=== PATIENT | female | born 1980 | race Caucasian/White ===

== ENCOUNTER 2017-02-27 01:02 | Emergency (ER) | payer MEDICAID, OTHER ==
[~2017-02-27] VITALS: Ht 154.9 cm; Wt 61.5 kg
[~2017-02-27 01:02] MED LIST: FIORICET PO; GLIM4TAB PO; MTF1000T PO; ONDA4TAB14 PO
[2017-02-27 01:14] VITALS: Ht 154.9 cm; Wt 61.5 kg
[2017-02-27] MEDS ORDERED: ONDANSETRON 4 MG INJ IV STA (02:30)
[2017-02-27] MEDS ORDERED: SOD CHLORIDE 0.9% 1,000 ML IV STA (02:30)
[2017-02-27] MEDS ORDERED: morphine 4 MG/ML VIAL IV STA (02:30)
--- NOTE | 2017-02-27 03:07 | ERD ---
ER Documentation Chief Complaint Date/Time DATE: 02/27/17 TIME: 03:05 Chief Complaint llq abd pain started yesterday on and off with nausea HPI 36-year-old female presents here in emergency department for complaints of left lower quadrant abdominal pain started yesterday. Patient describes the pain sharp pain 6/10 scale, accompanied with nausea and constipation, last bowel movement was 2 days ago. Denies any blood in the stool or black stool. Patient denies any vomiting. Patient denies any fever or chills. Patient did not take any medications to symptoms. ROS All systems reviewed and are negative except as per history of present illness. Medications Home Meds Active Scripts Ondansetron (Ondansetron Odt) 4 Mg Tab.rapdis, 4 MG PO Q8 Y for NAUSEA AND/OR VOMITING, #30 TAB Prov:ZA GREEN NP 02/27/17 Tramadol HCl (Tramadol HCl) 50 Mg Tablet, 50 MG PO Q6 Y for PAIN, #20 TAB Prov:ZA GREEN NP 02/27/17 Polyethylene Glycol* (Miralax*) 17 Gm Powd.pack, 17 GM PO DAILY, #7 Prov:ZA GREEN NP 02/27/17 Docusate Sodium* (Colace*) 100 Mg Capsule, 100 MG PO TID, #30 CAP Prov:ZA GREEN NP 02/27/17 Ondansetron (Ondansetron Odt) 4 Mg Tab.rapdis, 4 MG PO Q6H Y for NAUSEA AND/OR VOMITING, #10 TAB Prov:BOBBI INFANTE PA-C 10/02/16 Acetamin/Butalbital/Caffeine* (Fioricet*) [id number] Tab, 1 TAB PO Q6H Y for PAIN, #20 TAB Prov:BOBBI INFANTE PA-C 10/02/16 Reported Medications Glimepiride* (Glimepiride*) 4 Mg Tablet, 4 MG PO BID, TAB 01/10/15 Metformin* (Glucophage*) 1,000 Mg Tablet, 1000 MG PO BID, TAB 01/10/15 Allergies Allergies: Coded Allergies: No Known Allergies (Verified Allergy, Mild, 01/10/15) PMhx/Soc History of Surgery: Yes (c/s) Anesthesia Reaction: No Hx Neurological Disorder: No Hx Respiratory Disorders: No Hx Cardiac Disorders: No Hx Psychiatric Problems: No Hx Miscellaneous Medical Probl: Yes (DMtype 2) Hx Alcohol Use: No Hx Substance Use: No Hx Tobacco Use: No Smoking Status: Never smoker FmHx Family History: No coronary disease, No diabetes, No other Physical Exam Vitals Vital Signs Date Time Temp Pulse Resp B/P Pulse Ox O2 Delivery O2 Flow Rate FiO2 02/27/17 03:46 97.2 60 17 108/59 99 Room Air 02/27/17 01:14 97.5 83 18 108/72 99 Physical Exam GENERAL: The patient is well developed and appropriate for usual state of health, in no apparent distress. CHEST: Clear to auscultation bilaterally. There are no rales, wheezes or rhonchi. HEART: Regular rate and rhythm. No murmurs, clicks, rubs or gallops. No S3 or S4. ABDOMEN: Soft, tenderness on palpation in left lower quadrant. Good bowel sounds. No rebound or guarding. No gross peritonitis. No gross organomegaly or masses. No Leahy sign or McBurney point tenderness. BACK: No midline or flank tenderness. EXTREMITIES: Equal pulses bilaterally. There is no peripheral clubbing, cyanosis or edema. No focal swelling or erythema. Full range of motion. Grossly neurovascularly intact. NEURO: Alert and oriented. Cranial nerves 2-12 intact. Motor strength in all 4 extremities with 5/5 strength. Sensation grossly intact. Normal speech and gait. SKIN: There is no apparent rash or petechia. The skin is warm and dry. HEMATOLOGIC AND LYMPHATIC: There is no evidence of excessive bruising or lymphedema. No gross cervical, axillary, or inguinal lymphadenopathy. Result Diagram: 02/27/17 0244 02/27/17 0244 Results 24 hrs Laboratory Tests Test 02/27/17 02:44 White Blood Count 5.710^3/ul Red Blood Count 3.9410^6/ul Hemoglobin 11.9g/dl Hematocrit 35.6% Mean Corpuscular Volume 90.4fl Mean Corpuscular Hemoglobin 30.2pg Mean Corpuscular Hemoglobin Concent 33.4g/dl Red Cell Distribution Width 13.1% Platelet Count 04937^3/UL Mean Platelet Volume 9.3fl Neutrophils % 36.7% Lymphocytes % 53.8% Monocytes % 6.0% Eosinophils % 2.6% Basophils % 0.7% Nucleated Red Blood Cells % 0.0/100WBC Neutrophils # 2.110^3/ul Lymphocytes # 3.110^3/ul Monocytes # 0.310^3/ul Eosinophils # 0.210^3/ul Basophils # 0.010^3/ul Nucleated Red Blood Cells # 0.010^3/ul Urine Color LT. YELLOW Urine Clarity CLEAR Urine pH 5.5 Urine Specific [place] <=1.005 Urine Ketones NEGATIVE Urine Nitrite NEGATIVE Urine Bilirubin NEGATIVE Urine Urobilinogen 0.2 E.U./dL Urine Leukocyte Esterase NEGATIVE Urine Microscopic RBC Pending Urine Microscopic WBC Pending Urine Hemoglobin 2+ Urine Glucose >=1000% Urine Total Protein NEGATIVE Sodium Level 138mmol/L Potassium Level 3.9mmol/L Chloride Level 101mmol/L Carbon Dioxide Level 22mmol/L Anion Gap 19 Blood Urea Nitrogen 10mg/dl Creatinine 0.50mg/dl Glucose Level 257mg/dl Calcium Level 9.1mg/dl Total Bilirubin 0.2mg/dl Direct Bilirubin 0.00mg/dl Indirect Bilirubin 0.2mg/dl Aspartate Amino Transf (AST/SGOT) 14IU/L Alanine Aminotransferase (ALT/SGPT) 15IU/L Alkaline Phosphatase 82IU/L Total Protein 7.6g/dl Albumin 4.2g/dl Globulin 3.40g/dl Albumin/Globulin Ratio 1.23 Lipase 99U/L Current Medications Medications (Trade) Dose Ordered Sig/Negrito Route PRN Reason Start Time Stop Time Status Last Admin Dose Admin Sodium Chloride (NS) 1,000 ml @ 1,000 mls/hr Q1H STAT IV 02/27/17 02:30 02/27/17 03:29 DC 02/27/17 02:39 Morphine Sulfate (morphine) 4 mg ONCE STAT IV 02/27/17 02:30 02/27/17 02:31 DC 02/27/17 02:39 Ondansetron HCl (Zofran Inj) 4 mg ONCE STAT IV 02/27/17 02:30 02/27/17 02:31 DC 02/27/17 02:39 Normal saline IV bolus was given here in emergency department for rehydration, patient tolerated IV fluids.Patient was given medication for pain here in emergency department, after treatment, patient verbalized feeling much better. Patient's pain is improved. Patient was given Zofran here in the emergency department. After treatment, patient was able to tolerate po fluids here in the emergency department without any vomiting. There is no signs and symptoms of dehydration. PROCEDURE: CT abdomen and pelvis without intravenous contrast. CLINICAL INDICATION: Pain. TECHNIQUE: CT of the abdomen/pelvis was performed utilizing axial images with reconstructions in sagittal and coronal planes. The administered radiation dose is CTDI 7.8 mGy, DLP 423 mGy-cm. COMPARISON: No pertinent prior examinations were submitted for comparison. FINDINGS: Visualized Chest: The visualized lung bases are clear. Abdomen: The liver, spleen, pancreas, gallbladder,and adrenal glands are unremarkable. The kidneys are without hydronephrosis. A punctate nonobstructive calculus is noted within the interpolar left kidney. There is no evidence of bowel obstruction. The appendix is normal. No intra- abdominal free air is seen. There is no evidence of intra-abdominal adenopathy or free fluid. Pelvis: There is no evidence of pelvic adenopathy. The uterus and ovaries are without enlargement. The urinary bladder is unremarkable. There is no pelvic free fluid. Osseous structures: Unremarkable. IMPRESSION: No acute findings. Punctate nonobstructive left intrarenal calculus. RPTAT: HIKT .Chinedu Daniels MD, MD Date Time Electronically viewed and signed by .Chinedu Daniels MD, MD on 02/27/2017 04:23 .T/ CC: ZA GREEN [employer]NEY[employer] W[employer] Procedures/MDM Medical Decision Making: Patient's symptoms of left lower quadrant abdominal pain nonspecific at this time, can be from constipation, no bowel obstruction noted, no diverticulitis noted, no symptoms of any other perforated diverticulitis or abscesses. No suspicion for appendicitis. Patient's pain is controlled. There is low suspicion for abdominal emergencies at this time. Patients abdominal exam is normal at this time. Patients radiology exam does not show any abdominal emergencies at this time. There is low suspicion for appendicitis, cholecystitis, abdominal aortic aneurysms or peritonitis at this time. There is low suspicion for sepsis. Patient appears well and is hemodynamically stable. Disposition: Home. Condition: Stable Prescription Tramadol, Zofran, MiraLAX, Colace Instructions: Patient is advised to take medications as prescribed. Patient is advised to rest, increase fluid intake and do brat diet for next 1-2 days and progress as tolerated. Patient is advised that if symptoms are worse, severe abdominal pain, uncontrolled vomiting, high fever, severe flank pain, worst signs and symptoms, to return to the emergency department immediately. Otherwise, patient can follow up with primary care doctor in 5-7 days. Departure Diagnosis: Primary Impression: Abdominal pain Abdominal location: left lower quadrant Qualified Code: R10.32 - Left lower quadrant pain Additional Impression: Constipation Constipation type: unspecified constipation type Qualified Code: K59.00 - Constipation, unspecified constipation type Condition: Stable Patient Instructions: Abdominal Pain, Constipation (Adult) Comments Patient is advised to take medications as prescribed. Patient is advised to rest, increase fluid intake and do brat diet for next 1-2 days and progress as tolerated. Patient is advised that if symptoms are worse, severe abdominal pain , uncontrolled vomiting, high fever, severe flank pain, worst signs and symptoms , to return to the emergency department immediately. Otherwise, patient can follow up with primary care doctor in 5-7 days. ZA GREEN NP Feb 27, 2017 03:07
[2017-02-27 03:32] LABS: ADD SCAN DIFF NO
[2017-02-27 03:39] LABS: ADD UMIC YES; URINE BILIRUBIN (Dip) NEGATIVE (NEGATIVE); URINE BLOOD (Dip) 2+ (NEGATIVE); URINE COLOR LT. YELLOW (YELLOW); URINE GLUCOSE (Dip) >=1000 % (NEGATIVE); URINE KETONES (Dip) NEGATIVE (NEGATIVE); URINE LEUKOCYTE ESTERASE (Dip) NEGATIVE (NEGATIVE); URINE NITRITE (Dip) NEGATIVE (NEGATIVE); URINE TOTAL PROTEIN (Dip) NEGATIVE (NEGATIVE); URINE UROBILINOGEN (Dip) 0.2 E.U./dL (0.1-1.0)
[2017-02-27 03:56] LABS: BASOPHILS % 0.7 % (0.0-2.0); EOSINOPHILS # 0.2 10^3/ul (0.0-0.5); EOSINOPHILS % 2.6 % (0.0-7.0); HEMATOCRIT 35.6 % (37.0-47.0); HEMOGLOBIN 11.9 g/dl (12.0-16.0); LYMPHOCYTES # 3.1 10^3/ul (0.8-2.9); LYMPHOCYTES % 53.8 % (15.0-51.0); MEAN CORPUSCULAR HEMOGLOBIN 30.2 pg (29.0-33.0); MEAN CORPUSCULAR HGB CONC 33.4 g/dl (32.0-37.0); MEAN CORPUSCULAR VOLUME 90.4 fl (82.0-101.0); MEAN PLATELET VOLUME 9.3 fl (7.4-10.4); MONOCYTE # 0.3 10^3/ul (0.3-0.9); NEUTROPHIL # 2.1 10^3/ul (1.6-7.5); NEUTROPHILS % 36.7 % (39.0-77.0); PLATELET COUNT 385 10^3/UL (140-415); RED BLOOD COUNT 3.94 10^6/ul (4.20-5.40); RED CELL DISTRIBUTION WIDTH 13.1 % (11.5-14.5); WHITE BLOOD COUNT 5.7 10^3/ul (4.8-10.8)
[2017-02-27 04:01] LABS: ALBUMIN 4.2 g/dl (3.3-4.9)
[2017-02-27 04:02] LABS: POTASSIUM 3.9 mmol/L (3.5-5.1)
[2017-02-27 04:04] LABS: ALBUMIN/GLOBULIN RATIO 1.23; BILIRUBIN,INDIRECT 0.2 mg/dl (0-1.1); BILIRUBIN,TOTAL 0.2 mg/dl (0.2-1.3); CREATININE 0.5 mg/dl (0.44-1.00); TOTAL PROTEIN 7.6 g/dl (6.1-8.1)
[2017-02-27 04:05] LABS: CALCIUM 9.1 mg/dl (8.4-10.2)
--- NOTE | 2017-02-27 04:23 | RADRPT ---
PROCEDURE: CT abdomen and pelvis without intravenous contrast. CLINICAL INDICATION: Pain. TECHNIQUE: CT of the abdomen/pelvis was performed utilizing axial images with reconstructions in s agittal and coronal planes. The administered radiation dose is CTDI 7.8 mGy, DLP 423 mGy-cm. COMPARISON: No pertinent prior examinations were submitted for comparison. FINDINGS: Visualized Chest: The visualized lung bases are clear. Abdomen: The liver, spleen, pancreas, gallbladder,and adrenal glands are unremarkable. The kidneys are without hydronephrosis. A punctate nonobstructive calculus is noted within the inte rpolar left kidney. There is no evidence of bowel obstruction. The appendix is normal. No intra-abdominal free air is seen. There is no evidence of intra-abdominal adenopathy or free fluid. Pelvis: There is no evidence of pelvic adenopathy. The uterus and ovaries are without enlargement. The uri nary bladder is unremarkable. There is no pelvic free fluid. Osseous structures: Unremarkable. IMPRESSION: No acute findings. Punctate nonobstructive left intrarenal calculus. RPTAT: HIKT .Chinedu Daniels MD, MD Date Time Electronically viewed and signed by .Chinedu Daniels MD, MD on 02/27/2017 04:23 .T/
[2017-02-27] MEDS ORDERED: DOCU-144 PO (05:29)
[2017-02-27] MEDS ORDERED: POLY17PO6 PO (05:29)
[2017-02-27] MEDS ORDERED: TRAM50TA2 PO (05:30)
[2017-02-27] MEDS ORDERED: ONDA4TAB14 PO (05:30)
[2017-02-27 05:39] VITALS: BP 95/53; PULSE 67; RESP 16; TEMP 98
[2017-02-27 05:58] LABS: SQUAMOUS EPITHELIAL CELL,UR FEW
[2017-02-27 05:59] LABS: BACTERIA,URINE FEW
== END 2017-02-27 05:40 | disposition home or self-care (01) ==
LOC: FTE 01:02
DX: R10.32 Left lower quadrant pain (principal); K59.00 Constipation, unspecified; R11.0 Nausea; E11.9 Type 2 diabetes mellitus without complications; Z79.84 Long term (current) use of oral hypoglycemic drugs
CPT/HCPCS: 36415; 74176; 80053; 81001; 83690; 85025; 96374; 96375; J2270; J2405; J7030; Z7502; 81003

== ENCOUNTER 2017-05-04 21:47 | Emergency (ER) | payer OTHER ==
[~2017-05-04] VITALS: Ht 157.5 cm; Wt 59.5 kg
[~2017-05-04 21:47] MED LIST changes: +DOCU-144 PO; +POLY17PO6 PO; +TRAM50TA2 PO
[2017-05-04 22:14] VITALS: Ht 157.5 cm; Wt 59.5 kg
--- NOTE | 2017-05-04 22:55 | ERD ---
ER Documentation Chief Complaint Date/Time DATE: 05/04/17 TIME: 22:52 Chief Complaint headache; throat pain; bone pain HPI 36-year-old female presents here in emergency department for complaints of headache, bodyaches, sore throat for last 3 days. Patient's complaining of sore throat, burning pain, 6/10 scale, is worse upon swallowing. Patient's complaining of fever. Patient denies any sick contacts. Patient did not take any medication to help with symptoms. ROS All systems reviewed and are negative except as per history of present illness. Medications Home Meds Active Scripts Ibuprofen* (Motrin*) 600 Mg Tab, 600 MG PO Q6H Y for PAIN AND OR ELEVATED TEMP, #30 TAB Prov:ZA GREEN NP 05/04/17 Amoxicillin* (Amoxicillin*) 500 Mg Cap, 500 MG PO TID for 10 Days, CAP Prov:ZA GREEN NP 05/04/17 Ondansetron (Ondansetron Odt) 4 Mg Tab.rapdis, 4 MG PO Q8 Y for NAUSEA AND/OR VOMITING, #30 TAB Prov:ZA GREEN NP 02/27/17 Tramadol HCl (Tramadol HCl) 50 Mg Tablet, 50 MG PO Q6 Y for PAIN, #20 TAB Prov:ZA GREEN NP 02/27/17 Polyethylene Glycol* (Miralax*) 17 Gm Powd.pack, 17 GM PO DAILY, #7 Prov:ZA GREEN NP 02/27/17 Docusate Sodium* (Colace*) 100 Mg Capsule, 100 MG PO TID, #30 CAP Prov:ZA GREEN NP 02/27/17 Ondansetron (Ondansetron Odt) 4 Mg Tab.rapdis, 4 MG PO Q6H Y for NAUSEA AND/OR VOMITING, #10 TAB Prov:BOBBI INFANTE PA-C 10/02/16 Acetamin/Butalbital/Caffeine* (Fioricet*) [id number] Tab, 1 TAB PO Q6H Y for PAIN, #20 TAB Prov:BOBBI INFANTE PA-C 10/02/16 Reported Medications Glimepiride* (Glimepiride*) 4 Mg Tablet, 4 MG PO BID, TAB 01/10/15 Metformin* (Glucophage*) 1,000 Mg Tablet, 1000 MG PO BID, TAB 01/10/15 Allergies Allergies: Coded Allergies: No Known Allergies (Verified Allergy, Mild, 01/10/15) PMhx/Soc History of Surgery: Yes (c/s) Anesthesia Reaction: No Hx Neurological Disorder: No Hx Respiratory Disorders: No Hx Cardiac Disorders: No Hx Psychiatric Problems: No Hx Miscellaneous Medical Probl: Yes (DMtype 2) Hx Alcohol Use: No Hx Substance Use: No Hx Tobacco Use: No Smoking Status: Never smoker FmHx Family History: No coronary disease, No diabetes, No other Physical Exam Vitals Vital Signs Date Time Temp Pulse Resp B/P Pulse Ox O2 Delivery O2 Flow Rate FiO2 05/04/17 23:43 98.1 87 05/04/17 22:14 99.2 118 20 117/77 98 Physical Exam GENERAL: The patient is well developed and appropriate for usual state of health, in no apparent distress. HEENT: Atraumatic. Ears: Normal tympanic membrane, no erythema or bulging. No ear canal swelling. No ear discharge. Nose: normal nasal turbinates, no erythema or swelling. Normal nasal discharge. Throat: oropharynx erythematous with +1 tonsillar swelling and tonsillar exudates noted. No lymphadenopathy. CHEST: Clear to auscultation bilaterally. There are no rales, wheezes or rhonchi. HEART: Regular rate and rhythm. No murmurs, clicks, rubs or gallops. No S3 or S4. ABDOMEN: Soft, nontender and nondistended. Good bowel sounds. No rebound or guarding. No gross peritonitis. No gross organomegaly or masses. No Leahy sign or McBurney point tenderness. BACK: No midline or flank tenderness. EXTREMITIES: Equal pulses bilaterally. There is no peripheral clubbing, cyanosis or edema. No focal swelling or erythema. Full range of motion. Grossly neurovascularly intact. NEURO: Alert and oriented. Cranial nerves 2-12 intact. Motor strength in all 4 extremities with 5/5 strength. Sensation grossly intact. Normal speech and gait. SKIN: There is no apparent rash or petechia. The skin is warm and dry. HEMATOLOGIC AND LYMPHATIC: There is no evidence of excessive bruising or lymphedema. No gross cervical, axillary, or inguinal lymphadenopathy. Results 24 hrs Current Medications Medications (Trade) Dose Ordered Sig/Negrito Route PRN Reason Start Time Stop Time Status Last Admin Dose Admin Acetaminophen (Tylenol Tab) 650 mg ONCE ONCE PO 05/04/17 23:00 05/04/17 23:01 DC 05/04/17 23:24 Ibuprofen (Motrin) 600 mg ONCE ONCE PO 05/04/17 23:00 05/04/17 23:01 DC 05/04/17 23:24 Patient was given medicines for fever control here in the emergency department. After treatment, patient temperature improved and lower. Patient appears well and is hemodynamically stable. Procedures/MDM Medical decision making: Patient symptoms is likely consistent with acute bacterial pharyngitis, most likely strep throat. Low suspicion for peritonsillar abscess, mononucleosis, no symptoms of epiglottitis, laryngitis. No oral airway obstruction noted. No symptoms of sepsis at this time. Patient appears well and is hemodynamically stable. Patient was given for amoxicillin, ibuprofen,, is advised to follow-up with primary care doctor in 2-3 days for reevaluation of symptoms. Patient is advised to do salt water gargles. Patient is advised to return to emergency department for worsening symptoms. Disposition: Home. Stable. Departure Diagnosis: Primary Impression: Acute bacterial pharyngitis Condition: Stable Patient Instructions: Pharyngitis, Strep (Presumed) ZA GREEN NP May 04, 2017 22:55
[2017-05-04] MEDS ORDERED: IBUP-1542 PO (22:56)
[2017-05-04] MEDS ORDERED: AMO500 PO (22:56)
[2017-05-04] MEDS ORDERED: ACETAMINOPHEN 325 MG TAB PO ONE (23:00)
[2017-05-04] MEDS ORDERED: IBUPROFEN 600 MG TAB PO ONE (23:00)
[2017-05-04 23:43] VITALS: PULSE 87; TEMP 98.1
== END 2017-05-04 23:44 | disposition home or self-care (01) ==
LOC: FTE 21:47
DX: J02.8 Acute pharyngitis due to other specified organisms (principal); B96.89 Other specified bacterial agents as the cause of diseases classified elsewhere; E11.9 Type 2 diabetes mellitus without complications; Z79.84 Long term (current) use of oral hypoglycemic drugs
CPT/HCPCS: Z7502; Z7610

== ENCOUNTER 2017-05-10 11:24 | Emergency (ER) | payer OTHER ==
[~2017-05-10] VITALS: Ht 149.9 cm; Wt 52.5 kg
[~2017-05-10 11:24] MED LIST changes: +AMO500 PO; +IBUP-1542 PO
[2017-05-10 11:26] VITALS: Ht 149.9 cm; Wt 52.5 kg
[2017-05-10] MEDS ORDERED: KETOROLAC 30 MG INJ IM STA (11:56)
--- NOTE | 2017-05-10 12:14 | ERD ---
ER Documentation Chief Complaint Date/Time DATE: 05/10/17 TIME: 12:07 Chief Complaint SORTHROAT/ MENESES [id number], ON ABX, SEEN BY PCP BLOOD TEST DONE YESTERDAY HPI 36-year-old female complaining of sore throat and headache 1 week. Patient was seen here about 1 week ago, was diagnosed as possible strep pharyngitis and given amoxicillin. Patient stated that he had not help with her sore throat. She was seen by PCP yesterday, and had blood test done. She has not received the results yet. Patient reports intermittent fever at home with T-max 100.3. Her headache concentrated in the occipital region. She reports body aches and tired most. She took Excedrin migraine and ibuprofen at home for headache without relief. LMP 04/26/2017. Denies shortness of breath. Denies cough. Denies abdominal pain, vomiting, or diarrhea. ROS All systems reviewed and are negative except as per history of present illness. Medications Home Meds Active Scripts Ibuprofen* (Motrin*) 600 Mg Tab, 600 MG PO Q6H Y for PAIN AND OR ELEVATED TEMP, #30 TAB Prov:ZA GREEN NP 05/04/17 Amoxicillin* (Amoxicillin*) 500 Mg Cap, 500 MG PO TID for 10 Days, CAP Prov:ZA GREEN NP 05/04/17 Ondansetron (Ondansetron Odt) 4 Mg Tab.rapdis, 4 MG PO Q8 Y for NAUSEA AND/OR VOMITING, #30 TAB Prov:AZ GREEN NP 02/27/17 Tramadol HCl (Tramadol HCl) 50 Mg Tablet, 50 MG PO Q6 Y for PAIN, #20 TAB Prov:ZA GREEN NP 02/27/17 Polyethylene Glycol* (Miralax*) 17 Gm Powd.pack, 17 GM PO DAILY, #7 Prov:ZA GREEN NP 02/27/17 Docusate Sodium* (Colace*) 100 Mg Capsule, 100 MG PO TID, #30 CAP Prov:ZA GREEN NP 02/27/17 Ondansetron (Ondansetron Odt) 4 Mg Tab.rapdis, 4 MG PO Q6H Y for NAUSEA AND/OR VOMITING, #10 TAB Prov:BOBBI INFANTE PA-C 10/02/16 Acetamin/Butalbital/Caffeine* (Fioricet*) [id number] Tab, 1 TAB PO Q6H Y for PAIN, #20 TAB Prov:BOBBI INFANTE PA-C 10/02/16 Reported Medications Glimepiride* (Glimepiride*) 4 Mg Tablet, 4 MG PO BID, TAB 01/10/15 Metformin* (Glucophage*) 1,000 Mg Tablet, 1000 MG PO BID, TAB 01/10/15 Allergies Allergies: Coded Allergies: No Known Allergies (Verified Allergy, Mild, 05/10/17) PMhx/Soc History of Surgery: Yes (c section ) Anesthesia Reaction: No Hx Neurological Disorder: No Hx Respiratory Disorders: No Hx Cardiac Disorders: No Hx Psychiatric Problems: No Hx Miscellaneous Medical Probl: Yes (DMtype 2) Hx Alcohol Use: No Hx Substance Use: No Hx Tobacco Use: No Smoking Status: Never smoker Physical Exam Vitals Vital Signs Date Time Temp Pulse Resp B/P Pulse Ox O2 Delivery O2 Flow Rate FiO2 05/10/17 11:26 97.7 123 20 120/71 99 Physical Exam General: Well-developed, well-nourished, conscious and coherent, in no distress Skin: Warm and dry without rash, good texture and turgor Head: Normocephalic without evidence of trauma Eyes: Sclera and conjunctivae normal; pupils equal, round, and reactive to light; extraocular movements are intact Ears: Canals are patent. Tympanic membranes are clear Nose/Face: Without rhinorrhea Mouth/throat: Mucous membranes are moist. Posterior pharynx clear without erythema or exudates Neck: Supple without meningismus or adenopathy. Carotids are equal. Trachea midline. No bruits or JVD. Bilateral sternocleidomastoid tenderness and tightness. Chest: Normal AP diameter. Good expansion without retractions. Nontender. Lungs are clear to auscultate bilaterally with good tidal volume Heart: Regular rate and rhythm. Heart rate 96 bpm. No murmur, rub, or gallops heard. Abdomen: Soft and nontender without masses, guarding, or rebound. Bowel sounds are active. No hepatosplenomegaly Back: Without spinal or CVA tenderness Extremities: Full range of motion. Good strength bilaterally. No clubbing, cyanosis, or edema. Peripheral pulses are intact. Sensation intact Neuro: Alert and oriented 4, GCS 15. Cranial nerves grossly intact. Motor and sensory exams nonfocal. Moves all extremities. Speech clear. Gait normal Results 24 hrs Current Medications Medications (Trade) Dose Ordered Sig/Negrito Route PRN Reason Start Time Stop Time Status Last Admin Dose Admin Ketorolac Tromethamine (Toradol) 30 mg ONCE STAT IM 05/10/17 11:56 05/10/17 11:57 DC 05/10/17 12:06 Procedures/MDM Well-appearing 36-year-old female presented ED with subjective fever, sore throat, and headache 1 week. Toradol given to the patient in the ED for headache, patient reports improvement after Toradol Patient had been on amoxicillin for a week, her oropharynx unremarkable eye exam , I have low suspicion for strep pharyngitis. Patient does not have any respiratory distress, lungs are clear. I doubt pneumonia or bronchitis. I suspect her sore throat is from a viral cause, common cold versus mononucleosis. Her headaches likely tension type. Low suspicion for intracranial hemorrhage, mass, or stroke Patient appears well, stable for discharge and outpatient management. Medical decision making shared with patient and family. Education provided to patient and family. Patient and family expressed understanding of the plan. Medications on discharge: None. Follow-up: Primary care provider in 2-3 days or return to ED if worse. Departure Diagnosis: Primary Impression: Headache Headache type: tension-type Headache chronicity pattern: acute headache Intractability: not intractable Qualified Code: G44.209 - Acute non intractable tension-type headache Additional Impression: Sore throat Condition: Good Patient Instructions: Self-Care for Sore Throats, Self-Care for Headaches Additional Instructions: Llame al doctor MAANA y milo adalgisa VITO PARA DENTRO DE 2-3 MCCOY.Dgale a la secretaria que nosotros le instruimos hacer esta vito.Avise o llame si lara condicin se empeora antes de la vito. Regresa aqui si peor o no mejor. SERA PADILLA NP May 10, 2017 12:14
== END 2017-05-10 12:20 | disposition home or self-care (01) ==
LOC: FTE 11:24
DX: G44.209 Tension-type headache, unspecified, not intractable (principal); E11.9 Type 2 diabetes mellitus without complications; Z79.84 Long term (current) use of oral hypoglycemic drugs
CPT/HCPCS: 96372; J1885; Z7502

== ENCOUNTER 2017-05-12 14:51 | Emergency (ER) | payer OTHER ==
[~2017-05-12] VITALS: Ht 157.5 cm; Wt 57.0 kg
[2017-05-12 14:55] VITALS: Ht 157.5 cm; Wt 57.0 kg
[2017-05-12] MEDS ORDERED: ONDANSETRON 4 MG INJ IV STA (16:01)
[2017-05-12] MEDS ORDERED: SOD CHLORIDE 0.9% 1,000 ML IV STA (16:01)
[2017-05-12] MEDS ORDERED: ACETAMINOPHEN 325 MG TAB PO STA (16:01)
[2017-05-12 16:28] LABS: ADD SCAN DIFF NO
[2017-05-12 16:31] LABS: BASOPHILS % 0.1 % (0.0-2.0); EOSINOPHILS # 0.1 10^3/ul (0.0-0.5); EOSINOPHILS % 0.9 % (0.0-7.0); HEMATOCRIT 32.8 % (37.0-47.0); HEMOGLOBIN 10.8 g/dl (12.0-16.0); LYMPHOCYTES % 24.8 % (15.0-51.0); MEAN CORPUSCULAR HEMOGLOBIN 29.3 pg (29.0-33.0); MEAN CORPUSCULAR HGB CONC 32.9 g/dl (32.0-37.0); MEAN CORPUSCULAR VOLUME 88.9 fl (82.0-101.0); MEAN PLATELET VOLUME 8.2 fl (7.4-10.4); MONOCYTE # 0.5 10^3/ul (0.3-0.9); MONOCYTES % 6.4 % (0.0-11.0); NEUTROPHIL # 5.4 10^3/ul (1.6-7.5); NEUTROPHILS % 67.4 % (39.0-77.0); PLATELET COUNT 567 10^3/UL (140-415); RED BLOOD COUNT 3.69 10^6/ul (4.20-5.40); RED CELL DISTRIBUTION WIDTH 11.7 % (11.5-14.5)
[2017-05-12 16:41] LABS: URINE BLOOD (Dip) POC Negative (NEGATIVE)
--- NOTE | 2017-05-12 16:44 | RADRPT ---
PROCEDURE: CT Brain without contrast. CLINICAL INDICATION: Headache. TECHNIQUE: A CT of the brain without contrast was performed utilizing axial sections from the skul l base through the vertex. The patient was scanned without intravenous contrast enhancement. Sagitta l and coronal reformatted images were obtained using the data from the axial images. Total exam DLP is 630.20 mGy-cm. CTDIvol is 44.19 mGy. One or more of the following dose reduction techniques we re used: Automated exposure control, adjustment of the mA and/or kV according to patient size, use o f iterative reconstruction technique. COMPARISON: 10/02/2016. FINDINGS: There is normal irvin-white matter differentiation. The ventricles and cisterns are normal. There is no intracranial hemorrhage or space-occupying lesion. There is no skull fracture or lytic lesion. IMPRESSION: 1. Normal noncontrast CT scan of the brain. 2. No intracranial hemorrhage. 3. No change from 10/02/2016. RPTAT: QQ .Juan Martinez MD, MD Date Time Electronically viewed and signed by .Juan Martinez MD, on 05/12/2017 16:44 .R/
[2017-05-12] MEDS ORDERED: KETOROLAC 30 MG INJ IV STA (16:50)
[2017-05-12 16:53] LABS: ALBUMIN 4.3 g/dl (3.3-4.9); ALBUMIN/GLOBULIN RATIO 1.26; BILIRUBIN,INDIRECT 0.1 mg/dl (0-1.1); BILIRUBIN,TOTAL 0.1 mg/dl (0.2-1.3); CALCIUM 9.6 mg/dl (8.4-10.2); CREATININE 0.46 mg/dl (0.44-1.00); POTASSIUM 3.9 mmol/L (3.5-5.1); TOTAL PROTEIN 7.7 g/dl (6.1-8.1)
--- NOTE | 2017-05-12 17:42 | ERD ---
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 Patient states that this is her third ER visit. She states that 9 days ago she was diagnosed with strep pharyngitis and was given amoxicillin. She states that she stop the amoxicillin and was given azithromycin from her primary care provider on Tuesday. She states that she has been having continuous headaches and body aches and chills as well as bilateral neck pain. Denies abdominal pain, nausea, vomiting or diarrhea. States that she came to the ER 2 days ago with similar complaints and states that she was given Toradol with no other medication. She states that the pain is the same. She states that the pain came on suddenly 10 days ago. She denies fever. She states that she had some blood work done at her primary care provider but is unsure of what the results are and does not have the results with her. ROS All systems reviewed and are negative except as per history of present illness. Medications Home Meds Active Scripts Ibuprofen* (Motrin*) 600 Mg Tab, 600 MG PO Q6H Y for PAIN AND OR ELEVATED TEMP, #30 TAB Prov:ZA GREEN NP 05/04/17 Amoxicillin* (Amoxicillin*) 500 Mg Cap, 500 MG PO TID for 10 Days, CAP Prov:ZA GREEN NP 05/04/17 Ondansetron (Ondansetron Odt) 4 Mg Tab.rapdis, 4 MG PO Q8 Y for NAUSEA AND/OR VOMITING, #30 TAB Prov:ZA GREEN NP 02/27/17 Tramadol HCl (Tramadol HCl) 50 Mg Tablet, 50 MG PO Q6 Y for PAIN, #20 TAB Prov:ZA GREEN NP 02/27/17 Polyethylene Glycol* (Miralax*) 17 Gm Powd.pack, 17 GM PO DAILY, #7 Prov:ZA GREEN NP 02/27/17 Docusate Sodium* (Colace*) 100 Mg Capsule, 100 MG PO TID, #30 CAP Prov:ZA GREEN BIBI RenaMichael FIELDS 02/27/17 Ondansetron (Ondansetron Odt) 4 Mg Tab.rapdis, 4 MG PO Q6H Y for NAUSEA AND/OR VOMITING, #10 TAB Prov:BOBBI INFANTE PA-C 10/02/16 Acetamin/Butalbital/Caffeine* (Fioricet*) [id number] Tab, 1 TAB PO Q6H Y for PAIN, #20 TAB Prov:BOBBI INFANTE PA-C 10/02/16 Reported Medications Glimepiride* (Glimepiride*) 4 Mg Tablet, 4 MG PO BID, TAB 01/10/15 Metformin* (Glucophage*) 1,000 Mg Tablet, 1000 MG PO BID, TAB 01/10/15 Allergies Allergies: Coded Allergies: No Known Allergies (Verified Allergy, Mild, 05/10/17) PMhx/Soc History of Surgery: Yes (c section ) Anesthesia Reaction: No Hx Neurological Disorder: No Hx Respiratory Disorders: No Hx Cardiac Disorders: No Hx Psychiatric Problems: No Hx Miscellaneous Medical Probl: Yes (DMtype 2) Hx Alcohol Use: No Hx Substance Use: No Hx Tobacco Use: No Smoking Status: Never smoker FmHx Family History: No coronary disease, No diabetes, No other Physical Exam Vitals Vital Signs Date Time Temp Pulse Resp B/P Pulse Ox O2 Delivery O2 Flow Rate FiO2 05/12/17 18:04 106 19 118/73 100 Room Air 05/12/17 14:55 99.0 120 18 135/63 99 Physical Exam GENERAL: Well-developed, well-nourished female. Appears in no acute distress. HEAD: Normocephalic, atraumatic. EYES: Pupils are equally reactive bilaterally. EOMs grossly intact. No conjunctival erythema. ENT: Moist mucous membranes. No uvula deviation. No kissing tonsils. No exudates. bilateral neck tenderness, mild spinal tenderness with no step offs or deformities. range of motion intact. NECK: Supple. No lymphadenopathy or thyromegaly. No meningismus. negative kernig. negative brudinski. LUNG: Clear to auscultation bilaterally. No rhonchi, wheezing, rales or coarse breath sounds. HEART: Regular rate and rhythm. No murmurs, rubs or gallops. ABDOMEN: No scars, ecchymosis or rashes noted. Soft, nontender, and nondistended. Positive bowel sounds in all four quadrants. No rebound tenderness , no guarding. (-) McBurneys point tenderness. No CVA tenderness. BACK: No midline tenderness. Extremities: Equal pulses bilaterally. No peripheral clubbing, cyanosis or edema. No unilateral leg swelling. NEUROLOGIC: Alert and oriented. Moving all four extremities. 5/5 strength in all extremities. Normal speech. Steady gait. Cranial nerves II through XII intact SKIN: Normal color. Warm and dry. No rashes or lesions. Capillary refill < 2 seconds Result Diagram: 05/12/17 1615 05/12/17 1615 Results 24 hrs Laboratory Tests Test 05/12/17 16:15 05/12/17 16:46 White Blood Count 8.010^3/ul Red Blood Count 3.6910^6/ul Hemoglobin 10.8g/dl Hematocrit 32.8% Mean Corpuscular Volume 88.9fl Mean Corpuscular Hemoglobin 29.3pg Mean Corpuscular Hemoglobin Concent 32.9g/dl Red Cell Distribution Width 11.7% Platelet Count 80727^3/UL Mean Platelet Volume 8.2fl Neutrophils % 67.4% Lymphocytes % 24.8% Monocytes % 6.4% Eosinophils % 0.9% Basophils % 0.1% Nucleated Red Blood Cells % 0.0/100WBC Neutrophils # 5.410^3/ul Lymphocytes # 2.010^3/ul Monocytes # 0.510^3/ul Eosinophils # 0.110^3/ul Basophils # 0.010^3/ul Nucleated Red Blood Cells # 0.010^3/ul Sodium Level 139mmol/L Potassium Level 3.9mmol/L Chloride Level 105mmol/L Carbon Dioxide Level 24mmol/L Anion Gap 14 Blood Urea Nitrogen 11mg/dl Creatinine 0.46mg/dl Glucose Level 205mg/dl Calcium Level 9.6mg/dl Total Bilirubin 0.1mg/dl Direct Bilirubin 0.00mg/dl Indirect Bilirubin 0.1mg/dl Aspartate Amino Transf (AST/SGOT) 31IU/L Alanine Aminotransferase (ALT/SGPT) 46IU/L Alkaline Phosphatase 113IU/L Total Protein 7.7g/dl Albumin 4.3g/dl Globulin 3.40g/dl Albumin/Globulin Ratio 1.26 Lipase 65U/L Monoscreen Negative Bedside Urine pH (LAB) 7.5 Bedside Urine Protein (LAB) Negative Bedside Urine Glucose (UA) 0.1% Bedside Urine Ketones (LAB) Negative Bedside Urine Blood Negative Bedside Urine Nitrite (LAB) Negative Bedside Urine Leukocyte Esterase (L Negative Current Medications Medications (Trade) Dose Ordered Sig/Negrito Route PRN Reason Start Time Stop Time Status Last Admin Dose Admin Sodium Chloride (NS) 1,000 ml @ 1,000 mls/hr Q1H STAT IV 05/12/17 16:01 05/12/17 17:00 DC 05/12/17 16:28 Acetaminophen (Tylenol Tab) 650 mg ONCE STAT PO 05/12/17 16:01 05/12/17 16:07 DC 05/12/17 16:28 Ondansetron HCl (Zofran Inj) 4 mg ONCE STAT IV 05/12/17 16:01 05/12/17 16:07 DC 05/12/17 16:28 Ketorolac Tromethamine (Toradol) 30 mg ONCE STAT IV 05/12/17 16:50 05/12/17 16:51 DC 05/12/17 17:32 Procedures/MDM ER COURSE: I kept the patient and/or family informed of laboratory and diagnostic imaging results throughout the emergency room course. EKG, MONITORS, & DIAGNOSTIC IMAGING: [place] [id number] Radiology Main Line: [phone] DIAGNOSTIC IMAGING REPORT Patient: JAKE BAER : 1980 Age: 36 Sex: F [id number] DOS: 05/12/17 1601 Ordering MD: REHAN BAEZ PA-C Location: [facility] Room/Bed: PROCEDURE: CT Brain without contrast. CLINICAL INDICATION: Headache. TECHNIQUE: A CT of the brain without contrast was performed utilizing axial sections from the skull base through the vertex. The patient was scanned without intravenous contrast enhancement. Sagittal and coronal reformatted images were obtained using the data from the axial images. Total exam DLP is 630.20 mGy-cm. CTDIvol is 44.19 mGy. One or more of the following dose reduction techniques were used: Automated exposure control, adjustment of the mA and/or kV according to patient size, use of iterative reconstruction technique. COMPARISON: 10/02/2016. FINDINGS: There is normal irvin-white matter differentiation. The ventricles and cisterns are normal. There is no intracranial hemorrhage or space-occupying lesion. There is no skull fracture or lytic lesion. IMPRESSION: 1. Normal noncontrast CT scan of the brain. 2. No intracranial hemorrhage. 3. No change from 10/02/2016. RPTAT: QQ .Juan Martinez MD, Date Time Electronically viewed and signed by .Juan Martinez MD, on 05/12/2017 16:44 .R/ CC: REAHN BAEZ PA-C [place] [id number] Radiology Main Line: [phone] DIAGNOSTIC IMAGING REPORT Patient: JAKE BAER : 1980 Age: 36 Sex: F MR #: [id number] DOS: 05/12/17 1601 Ordering MD: REHAN BAEZ PA-C Location: [facility] Room/Bed: PROCEDURE: XR Cervical Spine 3 Views. CLINICAL INDICATION: Neck pain. TECHNIQUE: AP, lateral and odontoid views of the cervical spine were performed. The images were reviewed on a PACS workstation. COMPARISON: None. FINDINGS: C7 is not well visualized on the lateral image. The cervical spine demonstrates a normal lordosis. No fractures or destructive bony lesions are observed. Intervertebral disk heights appear normal. Facet joints are unremarkable. No prevertebral soft tissue thickening is observed. IMPRESSION: Limited exam with C7 not well visualized on the lateral image. Repeat lateral image or further characterization with CT can be can. Otherwise, unremarkable exam. If further characterization is needed CT or MRI could be helpful. If there is high clinical suspicion for traumatic injury, further evaluation with CT should be considered. RPTAT: AA .Cooper Gaona MD, Date Time Electronically viewed and signed by .Cooper Gaona MD, MD on 05/12/2017 17:43 .P/ CC: REHAN BAEZ PA-C MEDICATIONS: Patient was given Toradol, Zofran. Tolerated well with no adverse reactions improvement in symptoms. LAB INTERPRETATION: CBC showed no evidence of systemic infection or severe anemia. CMP showed no evidence of electrolyte abnormalities, severe acidosis, alkalosis, renal failure , or liver disease. Lipase showed no evidence of acute pancreatitis. UA showed no evidence of leukocytes, nitrites or hematuria. Urine test was negative. mono spot negative. MEDICAL DECISION MAKING: This is a 36-year-old female who presents with multiple complaints. Vital signs were reviewed. Patient is afebrile. Patient is not hypoxic. Patient is not toxic or ill-appearing. Patient has headache and body aches of unknown etiology. Risks versus benefits of the CT scan were discussed with patient. At this point due to patient's third visit in the ER, a CT brain was ordered. CT as read by radiologist was unremarkable. Low suspicion for intracranial hemorrhage, meningitis, intracranial mass, concussion, temporal arteritis, stroke, elevated intracranial pressure, seizure. I reexamined patient after administration of medication and fluids, patient was smiling and felt much better and was ready to be discharged. Patient does have slight anemia and will be given iron. X-ray of the cervical spine was unremarkable. Low suspicion for ACS, PE, AAA, dissection, DVT Patient's initial tachycardia was likely due to pain and stress reaction. And has now decreased DISCHARGE: At this time, patient is stable for discharge and outpatient management with no new complaints during the ER course. Patient was sent home with ferrous sulfate , and naproxen and to follow up with PCP. Copy of all imaging and laboratory studies were given to patient. Patient will be discharged home with instructions to recheck for new or worsening symptoms such as fever, nausea, weakness, LOC and to follow up with primary care in the next 1-2 days. Patient was advised to return to the ER for any new or worsening symptoms. Plan was discussed and patient and/or family understands and agrees. Home instructions were given. Departure Diagnosis: Primary Impression: Multiple complaints Condition: Stable REHAN BAEZ PA-C May 12, 2017 17:42
--- NOTE | 2017-05-12 17:43 | RADRPT ---
PROCEDURE: XR Cervical Spine 3 Views. CLINICAL INDICATION: Neck pain. TECHNIQUE: AP, lateral and odontoid views of the cervical spine were performed. The images were re viewed on a PACS workstation. COMPARISON: None. FINDINGS: C7 is not well visualized on the lateral image. The cervical spine demonstrates a normal lordosis. No fractures or destructive bony lesions are observed. Intervertebral disk heights appear normal. Facet joints are unremarkable. No prevertebral soft tissue thickening is observed. IMPRESSION: Limited exam with C7 not well visualized on the lateral image. Repeat lateral image or further medina acterization with CT can be can. Otherwise, unremarkable exam. If further characterization is needed CT or MRI could be helpful. If there is high clinical suspicion for traumatic injury, further evaluation with CT should be consi dered. RPTAT: AA .Cooper Gaona MD, MD Date Time Electronically viewed and signed by .Cooper Gaona MD, MD on 05/12/2017 17:43 .P/
[2017-05-12 18:04] VITALS: BP 118/73; PULSE 106; RESP 19
[2017-05-12 18:06] VITALS: TEMP 98.1
[2017-05-12] MEDS ORDERED: NAPR-260 PO (18:06)
[2017-05-12] MEDS ORDERED: FER325 PO (18:06)
== END 2017-05-12 18:26 | disposition home or self-care (01) ==
LOC: FTE 14:51
DX: R51 Headache (principal); M54.2 Cervicalgia
CPT/HCPCS: 36415; 70450; 72040; 80053; 81003; 83690; 85025; 86308; 96374; 96375; J1885; J2405; J7030; Z7502; Z7610

== ENCOUNTER 2017-10-03 21:08 | Emergency (ER) | payer OTHER ==
[~2017-10-03] VITALS: Ht 160 cm; Wt 62.5 kg
[~2017-10-03 21:08] MED LIST changes: -AMO500 PO; +AMOX500C2 PO; +FER325 PO; +NAPR-260 PO
[2017-10-03 21:16] VITALS: Ht 160 cm; Wt 62.5 kg
--- NOTE | 2017-10-03 23:47 | ERD ---
ER Documentation Chief Complaint Chief Complaint gen rash started today at 12nn, denies diff breathing/cough/fever HPI 37-year-old female presents here to emergency department for complaints of rash over the body and itching that started at 12 noon today. Patient denies eating something or different. Patient denies any lip swelling, tongue swelling or stridor. Patient denies any shortness of breath or wheezing. Patient did not take any medications to help with symptoms. Patient does not have any family members with the same type symptoms. ROS All systems reviewed and are negative except as per history of present illness. Medications Home Meds Active Scripts Calamine* (Calamine*) 120 Ml Lotion, 1 APPLIC TOP Q4H for RASH, #1 BOTTLE Prov:ZA GREEN NP 10/03/17 Diphenhydramine Hcl* (Benadryl*) 50 Mg Cap, 50 MG PO Q6H Y for ITCHING/RASH, # 30 CAP Prov:ZA GREEN NP 10/03/17 Naproxen* (Naprosyn*) 500 Mg Tablet, 500 MG PO BID Y for PAIN AND/OR INFLAMMATION, #30 TAB Prov:REHAN BAEZ PA-C 05/12/17 Ferrous Sulfate* (Ferrous Sulfate*) 325 Mg Tabec, 325 MG PO BID for 60 Days, TAB Prov:REHAN BAEZ PA-C 05/12/17 Ibuprofen* (Motrin*) 600 Mg Tab, 600 MG PO Q6H Y for PAIN AND OR ELEVATED TEMP, #30 TAB Prov:ZA GREEN NP 05/04/17 Amoxicillin* (Amoxicillin*) 500 Mg Cap, 500 MG PO TID for 10 Days, CAP Prov:ZA GREEN NP 05/04/17 Ondansetron (Ondansetron Odt) 4 Mg Tab.rapdis, 4 MG PO Q8 Y for NAUSEA AND/OR VOMITING, #30 TAB Prov:ZA GREEN NP 02/27/17 Tramadol HCl (Tramadol HCl) 50 Mg Tablet, 50 MG PO Q6 Y for PAIN, #20 TAB Prov:ZA GREEN NP 02/27/17 Polyethylene Glycol* (Miralax*) 17 Gm Powd.pack, 17 GM PO DAILY, #7 Prov:NORMAZA Perez NP 02/27/17 Docusate Sodium* (Colace*) 100 Mg Capsule, 100 MG PO TID, #30 CAP Prov:ZA GREEN BIBI Perez [employer] 02/27/17 Ondansetron (Ondansetron Odt) 4 Mg Tab.rapdis, 4 MG PO Q6H Y for NAUSEA AND/OR VOMITING, #10 TAB Prov:BOBBI INFANTE PA-C 10/02/16 Acetamin/Butalbital/Caffeine* (Fioricet*) [id number] Tab, 1 TAB PO Q6H Y for PAIN, #20 TAB Prov:BOBBI INFANTE PA-C 10/02/16 Reported Medications Glimepiride* (Glimepiride*) 4 Mg Tablet, 4 MG PO BID, TAB 01/10/15 Metformin* (Glucophage*) 1,000 Mg Tablet, 1000 MG PO BID, TAB 01/10/15 Allergies Allergies: Coded Allergies: No Known Allergies (Verified Allergy, Mild, 05/10/17) PMhx/Soc Immunizations: Up to date History of Surgery: Yes (c section ) Anesthesia Reaction: No Hx Neurological Disorder: No Hx Respiratory Disorders: No Hx Cardiac Disorders: No Hx Psychiatric Problems: No Hx Miscellaneous Medical Probl: Yes (DMtype 2) Hx Alcohol Use: No Hx Substance Use: No Hx Tobacco Use: No Smoking Status: Never smoker FmHx Family History: No coronary disease, No diabetes, No other Physical Exam Vitals Vital Signs Date Time Temp Pulse Resp B/P Pulse Ox O2 Delivery O2 Flow Rate FiO2 10/03/17 21:16 97.0 74 20 114/70 99 Physical Exam GENERAL: The patient is well developed and appropriate for usual state of health, in no apparent distress. CHEST: Clear to auscultation bilaterally. There are no rales, wheezes or rhonchi. HEART: Regular rate and rhythm. No murmurs, clicks, rubs or gallops. No S3 or S4. ABDOMEN: Soft, nontender and nondistended. Good bowel sounds. No rebound or guarding. No gross peritonitis. No gross organomegaly or masses. No Leahy sign or McBurney point tenderness. BACK: No midline or flank tenderness. EXTREMITIES: Equal pulses bilaterally. There is no peripheral clubbing, cyanosis or edema. No focal swelling or erythema. Full range of motion. Grossly neurovascularly intact. NEURO: Alert and oriented. Cranial nerves 2-12 intact. Motor strength in all 4 extremities with 5/5 strength. Sensation grossly intact. Normal speech and gait. SKIN: maculopapular rash noted all over the body. There is no apparent ecchymoses or petechia. The skin is warm and dry. HEMATOLOGIC AND LYMPHATIC: There is no evidence of excessive bruising or lymphedema. No gross cervical, axillary, or inguinal lymphadenopathy. Results 24 hrs Current Medications Medications (Trade) Dose Ordered Sig/Negrito Route PRN Reason Start Time Stop Time Status Last Admin Dose Admin Diphenhydramine HCl (Benadryl) 50 mg ONCE ONCE IM 10/04/17 00:00 10/04/17 00:01 Benadryl was given here in emergency department Procedures/MDM Medical decision making: Patient's rash all over the body and itching nonspecific at this time, possible allergic reaction, urticaria, can be also insect bite, nonspecific rash at this time. No symptoms of any anaphylactic shock. No symptoms of any angioedema. No symptoms of any contagious rash at this time. No symptoms of any acute bacterial infection, symptoms of any MRSA infection. No symptoms of any -Jan syndrome, necrosis, necrotizing fasciitis, or any other acute emergent skin conditions at this time. Patient was given Benadryl here in the emergency department and verbalized feeling much better. Patient will be given prescription for Benadryl to go home with and calamine cream, patient is advised to follow-up with primary care doctor in 2 days for reevaluation of symptoms. Patient was advised to return to emergency department for any worsening symptoms. Disposition: Home. Stable Departure Diagnosis: Primary Impression: Rash Condition: Stable Patient Instructions: Self-Care for Skin Rashes ZA GREEN NP Oct 03, 2017 23:47
[2017-10-03] MEDS ORDERED: BEN50 PO (23:51)
[2017-10-03] MEDS ORDERED: CALAMINE TOP (23:52)
[2017-10-04] MEDS ORDERED: DIPHENHYDRAMINE 50 MG INJ IM ONE
== END 2017-10-04 00:22 | disposition home or self-care (01) ==
LOC: FTE 21:08
DX: R21 Rash and other nonspecific skin eruption (principal); E11.9 Type 2 diabetes mellitus without complications; Z79.84 Long term (current) use of oral hypoglycemic drugs
CPT/HCPCS: 96372; J1200